=== PATIENT | female | born 1955 ===

== ENCOUNTER 2019-03-03 08:55 | Day surgery (SDC) | payer MEDICARE ==
[2019-03-03] MEDS ORDERED: LIDOcaine 2% 5ml jelly ONE (09:38)
[2019-03-03] MEDS ORDERED: silver sulfadiazine cream 50gm TP ONE (10:51)
== END 2019-03-03 11:20 | disposition home or self-care (01) ==
LOC: WOUND CARE 08:55
PROVIDERS: ATTEND Surgery
DX: L97.821 Non-pressure chronic ulcer of other part of left lower leg limited to breakdown of skin (principal); I87.2 Venous insufficiency (chronic) (peripheral); I89.0 Lymphedema, not elsewhere classified; L03.116 Cellulitis of left lower limb; E78.00 Pure hypercholesterolemia, unspecified; G47.33 Obstructive sleep apnea (adult) (pediatric); M19.90 Unspecified osteoarthritis, unspecified site; F32.9 Major depressive disorder, single episode, unspecified; I10 Essential (primary) hypertension; Z90.49 Acquired absence of other specified parts of digestive tract; Z90.710 Acquired absence of both cervix and uterus
CPT/HCPCS: 93971; A6223; G0463; A4663; A6446

== ENCOUNTER 2019-03-07 09:20 | Outpatient (CLI) | payer MEDICARE ==
[2019-03-07] MEDS ORDERED: silver sulfadiazine cream 50gm TP ONE (10:26)
== END 2019-03-07 10:25 | disposition home or self-care (01) ==
LOC: WOUND CARE 09:20 → EDSTATUS 09:30 → WOUND CARE 10:25
PROVIDERS: ATTEND Surgery
DX: L97.821 Non-pressure chronic ulcer of other part of left lower leg limited to breakdown of skin (principal); I87.2 Venous insufficiency (chronic) (peripheral); I89.0 Lymphedema, not elsewhere classified; L03.116 Cellulitis of left lower limb; E78.00 Pure hypercholesterolemia, unspecified; G47.33 Obstructive sleep apnea (adult) (pediatric); M19.90 Unspecified osteoarthritis, unspecified site; F32.9 Major depressive disorder, single episode, unspecified; I10 Essential (primary) hypertension; Z90.49 Acquired absence of other specified parts of digestive tract; Z90.710 Acquired absence of both cervix and uterus
CPT/HCPCS: A6223; G0463; A4663; A6446

== ENCOUNTER 2019-03-14 08:30 | Day surgery (SDC) | payer MEDICARE ==
[2019-03-14] MEDS ORDERED: silver sulfadiazine cream 50gm TP ONE (10:24)
== END 2019-03-14 10:47 | disposition home or self-care (01) ==
LOC: WOUND CARE 08:30
PROVIDERS: ATTEND Surgery
DX: L97.821 Non-pressure chronic ulcer of other part of left lower leg limited to breakdown of skin (principal); I87.2 Venous insufficiency (chronic) (peripheral); I89.0 Lymphedema, not elsewhere classified; L03.116 Cellulitis of left lower limb; E78.00 Pure hypercholesterolemia, unspecified; G47.33 Obstructive sleep apnea (adult) (pediatric); M19.90 Unspecified osteoarthritis, unspecified site; F32.9 Major depressive disorder, single episode, unspecified; I10 Essential (primary) hypertension; Z90.49 Acquired absence of other specified parts of digestive tract; Z90.710 Acquired absence of both cervix and uterus
CPT/HCPCS: 97597; 97598; A4663; A6446

== ENCOUNTER 2019-03-22 10:00 | Day surgery (SDC) | payer MEDICARE ==
[2019-03-22] MEDS ORDERED: LIDOcaine 2% 5ml jelly ONE (11:05)
[2019-03-22] MEDS ORDERED: silver sulfadiazine cream 50gm TP ONE (11:33)
== END 2019-03-22 12:00 | disposition home or self-care (01) ==
LOC: WOUND CARE 10:00
PROVIDERS: ATTEND Surgery
DX: L97.821 Non-pressure chronic ulcer of other part of left lower leg limited to breakdown of skin (principal); I87.2 Venous insufficiency (chronic) (peripheral); I89.0 Lymphedema, not elsewhere classified; L03.116 Cellulitis of left lower limb; E78.00 Pure hypercholesterolemia, unspecified; G47.33 Obstructive sleep apnea (adult) (pediatric); M19.90 Unspecified osteoarthritis, unspecified site; F32.9 Major depressive disorder, single episode, unspecified; I10 Essential (primary) hypertension; Z90.49 Acquired absence of other specified parts of digestive tract; Z90.710 Acquired absence of both cervix and uterus
CPT/HCPCS: 87070; 87075; 87102; 97597; A6223; 87077; 87186; A4663; A6446

== ENCOUNTER 2019-04-03 09:05 | Day surgery (SDC) | payer MEDICARE ==
[2019-04-03] MEDS ORDERED: LIDOcaine/PRILOcaine 5gm cream TP ONE (09:44)
[2019-04-03] MEDS ORDERED: silver sulfadiazine cream 50gm TP ONE (11:04)
== END 2019-04-03 11:30 | disposition home or self-care (01) ==
LOC: WOUND CARE 09:05
PROVIDERS: ATTEND Surgery
DX: L97.821 Non-pressure chronic ulcer of other part of left lower leg limited to breakdown of skin (principal); I87.2 Venous insufficiency (chronic) (peripheral); I89.0 Lymphedema, not elsewhere classified; L03.116 Cellulitis of left lower limb; E78.00 Pure hypercholesterolemia, unspecified; G47.33 Obstructive sleep apnea (adult) (pediatric); M19.90 Unspecified osteoarthritis, unspecified site; F32.9 Major depressive disorder, single episode, unspecified; I10 Essential (primary) hypertension; Z90.49 Acquired absence of other specified parts of digestive tract; Z90.710 Acquired absence of both cervix and uterus
CPT/HCPCS: 97597; 97598; A6446

== ENCOUNTER 2019-04-10 09:00 | Outpatient (CLI) | payer MEDICARE ==
[2019-04-10] MEDS ORDERED: LIDOcaine 2% 5ml jelly ONE ×2 (09:31→09:52)
[2019-04-10] MEDS ORDERED: silver sulfadiazine cream 50gm TP ONE (10:38)
== END 2019-04-10 10:51 | disposition home or self-care (01) ==
LOC: EDSTATUS 09:00 → WOUND CARE 09:00
PROVIDERS: ATTEND Surgery
DX: L97.821 Non-pressure chronic ulcer of other part of left lower leg limited to breakdown of skin (principal); I87.2 Venous insufficiency (chronic) (peripheral); I89.0 Lymphedema, not elsewhere classified; L03.116 Cellulitis of left lower limb; E78.00 Pure hypercholesterolemia, unspecified; G47.33 Obstructive sleep apnea (adult) (pediatric); M19.90 Unspecified osteoarthritis, unspecified site; I10 Essential (primary) hypertension; F32.9 Major depressive disorder, single episode, unspecified; Z90.49 Acquired absence of other specified parts of digestive tract; Z90.710 Acquired absence of both cervix and uterus
CPT/HCPCS: A6223; G0463; A4663; A6446

== ENCOUNTER 2019-04-17 08:55 | Outpatient (CLI) | payer MEDICARE ==
[2019-04-17] MEDS ORDERED: LIDOcaine 2% 5ml jelly ONE (09:49)
[2019-04-17] MEDS ORDERED: silver sulfadiazine cream 50gm TP ONE (10:14)
== END 2019-04-17 10:25 | disposition home or self-care (01) ==
LOC: WOUND CARE 08:55 → EDSTATUS 09:00 → WOUND CARE 10:25
PROVIDERS: ATTEND Surgery
DX: L97.821 Non-pressure chronic ulcer of other part of left lower leg limited to breakdown of skin (principal); I87.2 Venous insufficiency (chronic) (peripheral); I89.0 Lymphedema, not elsewhere classified; L03.116 Cellulitis of left lower limb; E78.00 Pure hypercholesterolemia, unspecified; G47.33 Obstructive sleep apnea (adult) (pediatric); M19.90 Unspecified osteoarthritis, unspecified site; I10 Essential (primary) hypertension; F32.9 Major depressive disorder, single episode, unspecified; Z90.49 Acquired absence of other specified parts of digestive tract; Z90.710 Acquired absence of both cervix and uterus
CPT/HCPCS: A6223; G0463; A4663; A6446

== ENCOUNTER 2019-04-24 08:55 | Day surgery (SDC) | payer MEDICARE ==
[2019-04-24] MEDS ORDERED: LIDOcaine 2% 5ml jelly ONE (09:23)
[2019-04-24] MEDS ORDERED: silver sulfadiazine cream 50gm TP ONE (10:59)
== END 2019-04-24 11:12 | disposition home or self-care (01) ==
LOC: WOUND CARE 08:55
PROVIDERS: ATTEND Surgery
DX: L97.821 Non-pressure chronic ulcer of other part of left lower leg limited to breakdown of skin (principal); I87.2 Venous insufficiency (chronic) (peripheral); I89.0 Lymphedema, not elsewhere classified; L03.116 Cellulitis of left lower limb; E78.00 Pure hypercholesterolemia, unspecified; G47.33 Obstructive sleep apnea (adult) (pediatric); M19.90 Unspecified osteoarthritis, unspecified site; I10 Essential (primary) hypertension; F32.9 Major depressive disorder, single episode, unspecified; Z90.49 Acquired absence of other specified parts of digestive tract; Z90.710 Acquired absence of both cervix and uterus
CPT/HCPCS: 97597; 97598; A6223; A4663; A6446

== ENCOUNTER 2019-05-04 08:30 | Day surgery (SDC) | payer MEDICARE ==
[2019-05-04] MEDS ORDERED: LIDOcaine 2% 5ml jelly ONE (09:34)
[2019-05-04] MEDS ORDERED: silver sulfadiazine cream 50gm TP ONE (10:31)
== END 2019-05-04 10:44 | disposition home or self-care (01) ==
LOC: WOUND CARE 08:30
PROVIDERS: ATTEND Surgery
DX: L97.821 Non-pressure chronic ulcer of other part of left lower leg limited to breakdown of skin (principal); I87.2 Venous insufficiency (chronic) (peripheral); I89.0 Lymphedema, not elsewhere classified; L03.116 Cellulitis of left lower limb; E78.00 Pure hypercholesterolemia, unspecified; G47.33 Obstructive sleep apnea (adult) (pediatric); M19.90 Unspecified osteoarthritis, unspecified site; I10 Essential (primary) hypertension; F32.9 Major depressive disorder, single episode, unspecified; Z90.49 Acquired absence of other specified parts of digestive tract; Z90.710 Acquired absence of both cervix and uterus
CPT/HCPCS: 97597; 97598; A6223; A4663; A6446